=== PATIENT | female | born 1990 | race Asian ===

== ENCOUNTER 2016-10-08 03:01 | Inpatient (IN) | payer MEDICAID ==
[~2016-10-08] VITALS: Ht 144.8 cm; Wt 67.1 kg
[2016-10-08] VITALS (14 sets, daily range): BP systolic 118–152; RESP 15–24; TEMP 97.4–98.3; Ht 144.8 cm; Wt 67.1 kg
[2016-10-08] MEDS ORDERED: LIDOCAINE 1% BUFFERED 1 ML SYR ONE (03:11)
[2016-10-08] MEDS ORDERED: LACT RINGERS 1,000 ML IV SCH ×2 (03:25→10:55)
[2016-10-08] MEDS ORDERED: CEFAZOLIN (LD/OB) 100 ML IV PRN (03:25)
[2016-10-08] MEDS ORDERED: ACETAMINOPHEN 325 MG TAB PO PRN (03:25)
[2016-10-08] MEDS ORDERED: PROMETHAZINE 25 MG/ML VIAL IV PRN ×2 (03:25→10:05)
[2016-10-08] MEDS ORDERED: MORPHINE 2 MG/ML SYR IV ONE (03:25)
[2016-10-08] MEDS ORDERED: FAMOTIDINE 20 MG INJ IV PRN (03:25)
[2016-10-08] MEDS ORDERED: OXYTOCIN 15 UNITS/250 ML NS 250 ML IV SCH ×2 (03:25→10:55)
[2016-10-08] MEDS ORDERED: ONDANSETRON 4 MG VIAL IV PRN ×4 (03:25→10:55)
[2016-10-08] MEDS ORDERED: LIDOCAINE 1% 30 ML PF INFILTRATE ONE (03:25)
[2016-10-08] MEDS ORDERED: ALU/MAG/SIM 30 ML UDC PO PRN (03:25)
[2016-10-08] MEDS ORDERED: LIDOCAINE 1% BUFFERED 1 ML SYR INTRADERM PRN (03:25)
[2016-10-08] MEDS ORDERED: FAMOTIDINE 20 MG TAB PO PRN (03:25)
[2016-10-08] MEDS ORDERED: METOCLOPRAMIDE 10 MG/2 ML VIAL IV PUSH PRN (03:25)
[2016-10-08] MEDS ORDERED: TERBUTALINE 1 MG/ML VIAL SUBQ PRN (03:25)
[2016-10-08] MEDS ORDERED: FENTANYL 100 MCG/2 ML AMP ONE (04:11)
[2016-10-08] MEDS ORDERED: ROPIV/FENT 0.2%-2MCG/ML 100 ML EPIDURAL ONE (04:11)
[2016-10-08] MEDS ORDERED: FENTANYL 100 MCG/2 ML AMP EPIDURAL ONE (04:50)
[2016-10-08] MEDS ORDERED: LACT RINGERS 500 ML IV PRN (04:50)
[2016-10-08] MEDS ORDERED: SODIUM CHLORIDE 0.9% 500 ML IV PRN (04:50)
[2016-10-08] MEDS ORDERED: ROPIV/FENT 0.2%-2MCG/ML 100 ML EPIDURAL SCH (04:50)
[2016-10-08] MEDS ORDERED: LACT RINGERS 500 ML IV ONE (04:50)
[2016-10-08] MEDS ORDERED: CHLOROPROCAINE 3% VIAL EPIDURAL ONE (07:45)
[2016-10-08] MEDS ORDERED: BUPIVACAINE 0.25% PF 10ML EPIDURAL ONE (07:46)
[2016-10-08] MEDS ORDERED: **ONLY ANESTEHSIA MAY ORDER OPIATES WHILE ON EPIDURAL XX SCH (08:00)
[2016-10-08] MEDS ORDERED: CARBOPROST 250 MCG/ML AMP ONE (09:37)
[2016-10-08] MEDS ORDERED: METHYLERGONOVINE MAL 0.2 MG/ML AMP ONE (09:37)
[2016-10-08] MEDS ORDERED: MEPERIDINE 25 MG/ML IV PRN (10:05)
[2016-10-08] MEDS ORDERED: OXYCODONE 5 MG TAB PO PRN (10:05)
[2016-10-08] MEDS ORDERED: NALOXONE 0.4 MG/ML AMP IV PRN (10:05)
[2016-10-08] MEDS ORDERED: SALINE FLUSH 10 ML FLUSH PRN (10:05)
[2016-10-08] MEDS ORDERED: BUTORPHANOL 1 MG/ML VIAL IV PRN (10:05)
[2016-10-08] MEDS ORDERED: DIPHENHYDRAMINE 50 MG/ML VIAL IV PRN (10:05)
[2016-10-08] MEDS ORDERED: MORPHINE 4 MG/ML SYR IV PRN ×2 (10:05)
[2016-10-08] MEDS ORDERED: MORPHINE 2 MG/ML SYR IV PRN ×2 (10:05)
[2016-10-08] MEDS ORDERED: MISOPROSTOL 100 MCG TAB ONE (10:32)
[2016-10-08] MEDS ORDERED: MISOPROSTOL 200 MCG TAB RECTAL ONE (10:55)
[2016-10-08] MEDS ORDERED: MEASLES,MUMPS,RUBELLA VAC SUBQ.VACC ONE (10:55)
[2016-10-08] MEDS ORDERED: TDaP 0.5 ML VIAL IM.VACC ONE (10:55)
[2016-10-08] MEDS ORDERED: OXYCODONE/APAP 5/325 TAB PO PRN (10:55)
[2016-10-08] MEDS ORDERED: MAG HYDROX 30 ML UDC PO PRN (10:55)
[2016-10-08] MEDS: DILAUDID 1 MG/ML AMP IV PRN ×3 (11:15→14:12)
[2016-10-08] MEDS: KETOROLAC 30 MG/ML VIAL IV SCH ×3 (11:47→23:54)
[2016-10-08] MEDS ORDERED: NIFEdipine XL 30 MG TAB PO SCH (12:30)
[2016-10-08] MEDS: SALINE FLUSH 10 ML FLUSH SCH (20:00)
[2016-10-09] VITALS (8 sets, daily range): BP systolic 94–117; RESP 16–18; TEMP 97.4–98.2
[2016-10-09] MEDS: KETOROLAC 30 MG/ML VIAL IV SCH (05:29)
[2016-10-09] MEDS ORDERED: SODIUM CHLORIDE 0.9% FLUSH BAG 500 ML IV SCH (06:00)
[2016-10-09] MEDS: DOCUSATE SOD 100 MG CAP PO SCH (08:12)
[2016-10-09] MEDS ORDERED: NIFEdipine XL 30 MG TAB PO SCH (09:00)
[2016-10-09] MEDS: SALINE FLUSH 10 ML FLUSH SCH (09:40)
[2016-10-09] MEDS: OXYCODONE/APAP 5/325 TAB PO PRN ×3 (10:12→20:17)
[2016-10-09] MEDS: Ibuprofen 800 MG TAB PO SCH ×2 (16:08→23:16)
[2016-10-10 05:27] VITALS: BP_SYST 120; RESP 20; TEMP 97.7
[2016-10-10] MEDS: OXYCODONE/APAP 5/325 TAB PO PRN ×2 (05:52→13:30)
[2016-10-10] MEDS: DOCUSATE SOD 100 MG CAP PO SCH (08:19)
[2016-10-10] MEDS: Ibuprofen 800 MG TAB PO SCH (08:19)
[2016-10-10 09:21] VITALS: BP_SYST 112; TEMP 97.8
[2016-10-10 09:22] VITALS: RESP 16
[2016-10-10 10:39] VITALS: BP_SYST 112; RESP 16; TEMP 97.8
== END 2016-10-10 14:20 | disposition home or self-care (01) | DRG 766 ==
LOC: LDOP 03:01 → LD 03:11 → OB 14:25
PROVIDERS: ADMIT Obstetrics & Gynecology; ATTEND Obstetrics & Gynecology
PROC: 10D00Z1 Extraction of Products of Conception, Low, Open Approach (ICD-10-PCS; principal; 2016-10-08)
PROC: 10907ZC Drainage of Amniotic Fluid, Therapeutic from Products of Conception, Via Natural or Artificial Opening (ICD-10-PCS; 2016-10-08)
DX: O76 Abnormality in fetal heart rate and rhythm complicating labor and delivery (principal); D25.9 Leiomyoma of uterus, unspecified; O62.0 Primary inadequate contractions; Z3A.39 39 weeks gestation of pregnancy; Z37.0 Single live birth; O34.13 Maternal care for benign tumor of corpus uteri, third trimester; O14.04 Mild to moderate pre-eclampsia, complicating childbirth
CPT/HCPCS: 80053; 82570; 82803; 84156; 85025; 86850; 86900; 86901; 88307